=== PATIENT | male | born 1995 | race Caucasian/White ===

== ENCOUNTER 2020-08-31 15:13 | Outpatient (CLI) | payer BC, SELFPAY ==
--- NOTE | ~2020-08-31 | CT_ITS ---
EXAMINATION: CT tibia/fibula RT wo con EXAM DATE: 08/31/2020 15:42 INDICATION: Right lower extremity swelling for one month. Cellulitis. TECHNIQUE: Spiral CT tibia/fibula RT wo con was performed without contrast. Axial, coronal and sagi ttal images were reviewed. The dose-length product (DLP) for this examination was 910.29 mGy-cm. Th e exposure was tailored according to patient size (auto mA exposure control), and iterative reconstru ction (ASIR) was used as additional dose reduction technique. There is no prior study for comparison . FINDINGS: There is skin thickening and edema in the subcutaneous fat along the right lower leg, and m ore medial centered thickening and edema medially just above the ankle. No evidence of abscess. There is no right knee joint effusion. There are no bony erosions identified. There are no acute fractur es identified. Scattered bone islands. IMPRESSION: Right lower extremity cellulitis. Reviewed, dictated and finalized at location A.
[2020-08-31 16:11] LABS: Basophils Percent Auto 0.4 % (0.2-1.2); Eosinophils Absolute Auto 0.1 K/mm3 (0-0.3); Eosinophils Percent Auto 0.6 % (0-4.4); Hematocrit 36.4 % (42.0-52.0); Immature Granulocyte Absolute 0.08 K/mm3 (0.00-0.031); Immature Granulocyte Percent A 0.9 % (0-0.5); Lymphocytes Percent Auto 16.9 % (18.3-44.2); Mean Corpuscular HGB Conc 30.2 g/dl (32-36); Mean Corpuscular Hemoglobin 22.5 pg (26-34); Mean Corpuscular Volume 74.4 fl (80-100); Mean Platelet Volume 9.2 fl (7.4-10.4); Monocytes Absolute Auto 1.1 K/mm3 (0.1-0.6); Monocytes Percent Auto 12.1 % (2.6-8.5); Neutrophils Absolute Auto 6.1 K/mm3 (1.3-6.7); Neutrophils Percent Auto 69.1 % (45.5-73.1); Platelet Count Result 324 k/mm3 (150-375); Red Blood Count 4.89 M/mm3 (4.6-6.20); Red Cell Distribution Width 16.1 % (11.5-14.5); White Blood Count 8.9 K/mm3 (4.5-10.0)
[2020-08-31 16:46] LABS: Albumin Level 4.6 g/dL (3.5-5.1); Alkaline Phosphatase 113 U/L (38-126); Anion Gap 5 mmol/L (8-16); Aspartate Amino Transferase 73 U/L (17-59); Bilirubin,Total 0.2 mg/dL (0.2-1.3); Blood Urea Nitrogen 13 mg/dL (9-20); Calcium 9.5 mg/dL (8.4-10.2); Carbon Dioxide 31 mmol/L (22-30); Chloride 105 mmol/L (98-107); Estimated Glomerular Filt Rate > 60; Glucose 95 mg/dL (75-110); Potassium 4.6 mmol/L (3.4-5.0); Sodium 141 mmol/L (137-145)
[2020-08-31 16:59] LABS: Alanine Aminotransferase 33 U/L (4-50)
== END 2020-08-31 15:14 | disposition home or self-care (01) ==
PROVIDERS: PCP Physician Assistant; Visit Provider Physician Assistant
DX: L03.115 Cellulitis of right lower limb (principal)
CPT/HCPCS: 36415; 73700; 80053; 85025

== ENCOUNTER 2021-10-14 13:23 | Emergency (ER) | payer OTHER, SELFPAY ==
--- NOTE | ~2021-10-14 | US_ITS ---
EXAMINATION: US venous doppler [facility] DATE: 10/14/2021 16:00 INDICATION: Left lower limb pain TECHNIQUE: Finney scale images without and with compression and Doppler images of the left lower extrem ity veins were obtained. COMPARISON: None FINDINGS: The left common femoral vein, profunda femoral vein, femoral vein, popliteal vein, peroneal trunk, posterior tibial veins, and greater saphenous vein are patent. There is left inguinal lymphad enopathy. IMPRESSION: 1. Patent left lower extremity veins. No evidence of deep venous thrombosis. 2. Left inguinal lymphadenopathy. Clinical follow-up is recommended. Reviewed, dictated and finalized at location F.
[2021-10-14 13:25] VITALS: BP 145/74; PULSE 108; RESP 16; TEMP 36.6; O2SAT 98
--- NOTE | 2021-10-14 14:03 | PC.NURSE ---
EDP at bedside to assess pt.
--- NOTE | 2021-10-14 14:08 | ED.LOWEXIN ---
HPI - Extremity Injury (Lower) General Chief Complaint: Extremity Injury, Lower Stated Complaint: L leg pain Time Seen by Provider: 10/14/21 13:29 History of Present Illness HPI Narrative: 26-year-old male presents the emergency room for evaluation of rash to the left lower extremity. Patient states that he has had a discolored rash to his left anterior heath for approximately 2 months. Patient states that he was seen at his primary care physician's office approximately 12 months ago for the same issue to his right lower extremity, was given multiple antibiotics with no resolution. He states he did follow-up with dermatology at that time for biopsy but was never told of the results. Patient states that the rash resolved spontaneously. Patient denies fever Related Data Allergies Allergy/AdvReac Type Severity Reaction Status Date / Time No Known Allergies Allergy Verified 10/14/21 14:15 Review of Systems Review of Systems: CONSTITUTIONAL: Denies fever, chills, or sweats. EYES: Denies visual changes, redness, or discharge. ENT: Denies rhinorrhea, congestion, sore throat, or otalgia. CARDIOVASCULAR: Denies chest pain, palpitations, or edema. RESPIRATORY: Denies cough or dyspnea. GASTROINTESTINAL: Denies abdominal pain, nausea, vomiting, or diarrhea. GENITOURINARY: Denies dysuria or hematuria. SKIN: Reports rash to left lower extremity MUSCULOSKELETAL: Denies back pain, joint pain, or myalgia. NEUROLOGIC: Denies headache, numbness, dizziness, or weakness. PSYCHIATRIC: Denies anxiety or depression. Exam Narrative: GENERAL: Well-appearing, well-nourished, no physical limitations, and in no acute distress. HEAD: Normocephalic, atraumatic. EYES: Conjunctivae normal, PERRLA and EOMI. CHEST: Clear to auscultation. No respiratory distress. No wheezes rales or rhonchi. No tenderness. HEART: Regular rate and rhythm. No murmur heard. Normal peripheral pulses. EXTREMITIES: Normal range of motion. No edema. No clubbing or cyanosis SKIN: partially blanching coalescing purpuric rash anterior left lower extremity extending from ankle to just below the knee NEURO: No focal deficits. Alert and oriented x3. MAEW. CN's II-XI intact bilaterally, normal gait PSYCH: Cooperative. Normal mood and affect. Course Vital Signs Vital signs: Vital Signs Temperature 36.6 C 10/14/21 13:25 Pulse Rate 108 H 10/14/21 13:25 Respiratory Rate 16 10/14/21 13:25 Blood Pressure 145/74 H 10/14/21 13:25 Pulse Oximetry 98 10/14/21 13:25 Temperature 36.6 C 10/14/21 13:25 Pulse Rate 108 H 10/14/21 13:25 Respiratory Rate 16 10/14/21 13:25 Blood Pressure 145/74 H 10/14/21 13:25 Pulse Oximetry 98 10/14/21 13:25 MDM - Extremity Injury (Lower) MDM Narrative Medical decision making narrative: 26-year-old male presents the emergency room with a rash for approximately 2 months, consistent with vasculitis of unknown etiology. History and exam were not consistent with any dangerous etiologies such as Tracy-Gael's, or secondary dangerous causes such as a thrombocytopenia or rickettsial. Rash does not appear urticarial and has no signs of anaphylaxis. Will treat with steroids and have patient follow-up with dermatology. Lab Data Result diagrams: 10/14/21 14:18 10/14/21 14:18 Labs: Lab Results 10/14/21 10/14/21 10/14/21 Range/Units 14:18 14:18 14:18 WBC 9.7 (4.5-10.0) K/mm3 RBC 4.53 L (4.6-6.20) M/mm3 Hgb 9.9 L (14.0-18.0) g/dL Hct 32.8 L (42.0-52.0) % MCV 72.4 L (80-100) fl MCH 21.9 L (26-34) pg MCHC 30.2 L (32-36) g/dl RDW 17.9 H (11.5-14.5) % Plt Count 355 (150-375) k/mm3 MPV 9.4 (7.4-10.4) fl Immature Gran % (Auto) 0.6 H (0-0.5) % Neut % (Auto) 65.4 (45.5-73.1) % Lymph % (Auto) 18.8 (18.3-44.2) % [place] % (Auto) 14.4 H (2.6-8.5) % Eos % (Auto) 0.3 (0-4.4) % Baso % (Auto) 0.5 (0.2-1.2) % Lymph # (Auto) 1.82 (0
[2021-10-14 14:31] LABS: Basophils Absolute Auto 0.1 K/mm3 (0.0-0.1); Basophils Percent Auto 0.5 % (0.2-1.2); Eosinophils Percent Auto 0.3 % (0-4.4); Hematocrit 32.8 % (42.0-52.0); Hemoglobin 9.9 g/dL (14.0-18.0); Immature Granulocyte Absolute 0.06 K/mm3 (0.00-0.031); Immature Granulocyte Percent A 0.6 % (0-0.5); Lymphocytes Absolute Auto 1.82 K/mm3 (0.9-3.2); Lymphocytes Percent Auto 18.8 % (18.3-44.2); Mean Corpuscular HGB Conc 30.2 g/dl (32-36); Mean Corpuscular Hemoglobin 21.9 pg (26-34); Mean Corpuscular Volume 72.4 fl (80-100); Mean Platelet Volume 9.4 fl (7.4-10.4); Monocytes Absolute Auto 1.4 K/mm3 (0.1-0.6); Monocytes Percent Auto 14.4 % (2.6-8.5); Neutrophils Absolute Auto 6.3 K/mm3 (1.3-6.7); Neutrophils Percent Auto 65.4 % (45.5-73.1); Platelet Count Result 355 k/mm3 (150-375); Red Blood Count 4.53 M/mm3 (4.6-6.20); Red Cell Distribution Width 17.9 % (11.5-14.5); White Blood Count 9.7 K/mm3 (4.5-10.0)
[2021-10-14 14:56] LABS: Anisocytosis 1+ (NORMAL); Microcytosis 1+ (NORMAL); Ovalocytes 1+ (NORMAL); Platelet Estimate Adequate (Adequate)
[2021-10-14 15:04] LABS: Alanine Aminotransferase 33 U/L (6-50); Albumin Level 4.5 g/dL (3.5-5.1); Alkaline Phosphatase 113 U/L (38-126); Anion Gap 8 mmol/L (8-16); Aspartate Amino Transferase 74 U/L (17-59); Bilirubin,Total 0.2 mg/dL (0.2-1.3); Blood Urea Nitrogen 11 mg/dL (9-20); Carbon Dioxide 26 mmol/L (22-30); Chloride 105 mmol/L (98-107); D Dimer 16.52 ug/mL (<0.48); Estimated CRCL calculation 256 ml/min; Estimated Glomerular Filt Rate > 60; Glucose 111 mg/dL (65-110); Potassium 3.7 mmol/L (3.4-5.0); Sodium 139 mmol/L (137-145)
[2021-10-14 15:17] LABS: CRP 14.5 mg/dL (<1.0)
[2021-10-14 15:57] LABS: Erythrocyte Sedimentation Rate 63 mm/hr (0-20)
[2021-10-14 17:12] LABS: Appearance Urine Clear (Clear); Bilirubin Urine 1+ (Negative); Color Urine Yellow (Yellow); Glucose Urine UA Negative (Negative); Ketones Urine Negative (Negative); Leukocyte Esterase Ur Negative LEU/UL (Negative); Nitrate Urine Negative (Negative); Protein Urine Negative (Negative); Specific Grav Ur >= 1.030 (1.001-1.035); pH Urine 5.5 (5.0-9.0)
[2021-10-14 17:15] LABS: Add Urine Microscopic? YES; Blood Urine Trace-Intact (Negative)
[2021-10-14 17:18] LABS: Bacteria Urine Trace /hpf; Mucus Urine Moderate /lpf; RBC Urine 0-2 /hpf (0-2); Squamous Epithelial Cell Urine Rare /hpf (Few); WBC Urine 0-3 /hpf
== END 2021-10-14 17:51 | disposition home or self-care (01) ==
PROVIDERS: Emergency Provider Nurse Practitioner Family; PCP Physician Assistant
DX: D69.2 Other nonthrombocytopenic purpura (principal)
CPT/HCPCS: 36415; 80053; 81001; 85025; 85380; 85652; 86140; 93971; 96372; 99284; J1100